=== PATIENT | female | born 1980 | race Caucasian/White ===

== ENCOUNTER 2024-10-28 10:35 | Outpatient (AMB) | payer BC, SELFPAY ==
[2024-10-28 10:44] VITALS: BP 119/82; PULSE 74; RESP 16; TEMP 36.1; O2SAT 99; BMI 23.9
--- NOTE | 2024-10-28 10:44 | AMB.GYNCLNOT ---
Vital Signs 10/28/24 10:44 Height 1.68 m Height Method Stated Weight 67.358 kg Weight Measurement Method Standing Scale BMI 23.9 BP 119/82 Blood Pressure Source Automatic Cuff Blood Pressure Location Left Upper Arm Position Sitting Respiration 16 Pulse 74 Pulse Source Monitor Temp 96.9 F Temp Source Oral Pulse Oximetry (%) 99 Oxygen Delivery Method Room Air Allergies/Home Meds Allergies & Medications Allergies No Known Allergies Allergy (Verified 10/28/24 10:45) Medication Reconciliation No Known Home Medications 10/28/24 [History Confirmed 10/28/24] Intake Visit Data Collection New Patient or Established: New Patient (never been to [facility]) Reason for Visit:: Discuss new breast lump Consent obtained for Telemed Visit: No Seen by Clinical Staff ONLY (RN/MA): No 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 Do You Feel Safe at Home: Yes Authorities Contacted: N/A PCP or OBGYN visit in last 3 months: Yes Date of Last PCP or OBGYN visit: 10/17/23 Hx Now: No Are you currently on any form of Control: No Last menstrual period: 10/17/24 Pain Present Currently: Yes Pain Location: Breast Pain Scale Used: Goldstein-Gold/Numerical Pain scale:: 1 (With deep palpation of breast) Smoking Status Smoking Status: Never smoker 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 1. Little interest or pleasure in doing things: not at all 2. Feeling down, depressed, or hopeless: not at all Total score: 0 PHQ-9 3. Trouble falling or staying asleep, or sleeping too much: Not at all 4. Feeling tired or having little energy: Not at all 5. Poor appetite or overeating: Not at all 6. Feeling bad about yourself - or that you are a failure or have let yourself or your family down: Not at all 7. Trouble concentrating on things, such as reading the newspaper or watching television: Not at all 8. Moving or speaking so slowly that other people could have noticed? - Or the opposite - being so fidgety or restless that you have been moving around a lot more than usual: not at all 9. Thoughts that you would be better off or of hurting yourself in some way: Not at all Total score: 0 If you checked off any problems, how difficult have these problems made it for you to do your work, take care of things at home, or get along with other people?: not difficult at all Source: Developed by Drs. Sanya Keating, Nelly Kee, Demetrius Aleman and colleagues, with an educational terese from [employer]. Depression screen completed yes Social History Living Situation History Marital Status: Lives With: Family Housing: House Housing Other:: Has two children, a 16 y/o son and a 14 year old daughter Tobacco History Smoking Status: Never smoker Alcohol History Alcohol Intake: Current Alcohol Intake Frequency: holidays/special occasions only Domestic Abuse History Do You Feel Safe at Home: Yes Past Medical History Past Medical History Have you ever been diagnosed with any of the following: Neurological Problems Seizures: No Guillain-[place] Syndrome: No Migraine: No Cardiology Problems Cardiac Arrhythmia: No Heart Murmur: No Hypercholesterolemia: No Hypertension: No Respiratory Problems Asthma: No Stomache/Intestinal Problems Gall Bladder Disease: No Ulcer: No Gastroesophageal Reflux Disease: No Obesity: Yes (Pt recently lost 50 pounds with Zepbound, an injectable medication) Genital/Urinary Problems Kidney Stones: No Reproductive Problems Breast Cancer: No Endometriosis: No Fibroids: No Genital Herpes: No Gonorrhea: No Pelvic Inflammatory Disease: No Polycystic Ovarian Syndrome: No Previous Pregnancies: Yes ( x 2, one in 07/22 and one in 12/23. Both full term without problems) Uterine Prolapse: No Musculoskeletal Problems Arthritis: No Rheumatoid Arthritis: No Carpal Tunnel Syndrome: No Fibromyalgia: No Endocrine Problems Diabetes Mellitus Type 2: No Hyperthyroidism: No Hypothyroidism: No Thyroid Cancer: No Systemic Lupus Erythematosus: No Blood Problems Anemia: No Psychologic Problems Depression: No Anxiety: No Attention Deficit Disorder: No Depression: No Eating Disorder: No Other Problems Hospitalization: Yes (for childbirth x 2) Blood Transfusions: No Anesthesia Reactions: No History of Present Illness HPI Narrative The patient is a 44 y/o presents very anxious and is reporting a new breast lump in her left breast at 12 o'clock, The left breast is not tender but the right breast is. No lymphadenopathy or nipple discharge. Pt states her PGM had breast CA. Her last mammogram was a year ago and was reported nomal per pt. No records are available to review. Review of Systems Constitutional Constitutional: Reports as per HPI Comments: Pt admits to intentional weight loss of 50 + pounds with Zepbound recently. Integumentary/Breasts Skin/Breast: Reports breast mass (left breast) and Reports breast pain (right breast) Exam General Limitations: no limitations General Appearance: alert, cooperative, well groomed and anxious Head Head exam: normal inspection Neck Neck exam: Present normal inspection Chest Chest inspection: Present normal inspection and symmetric chest wall rise Exp Chest Breast: left: mass (2x 2 cm mobile mass 12 0'clock above nipple), right: tenderness (diffusely tender) and bilateral: other (Extremely fibrocystic breasts) Resp Respiratory exam: Present normal lung sounds bilaterally Card Cardiovascular exam: Present regular rate and normal rhythm Assessment & Plan Diagnosis / Problem List (1) Breast lump on left side at 1 o'clock position: Status: Acute (2) Special screening examination for neoplasm of breast: Status: Acute (3) Fibrocystic breast changes, bilateral: Status: Acute Plan The patient has very fibrocystic breasts bilaterally with a palpable lump about 12-1 o'clock on the left breast. At this point we will order a diagnostic B mammogram and a B breast U/S. If the lump persists and the screening is negative, I offered to send the patient to a breast surgeon for a biopsy. Additional Plan Follow Up: 4 Weeks Office Procedures OB Clinic LOC & Office Proc's Nursing/Assessment Patient Status: Initial/New Patient OB Clinic Nursing Assessment: BP Monitoring, Medication Reconciliation, Update PMH in EMR and Vital Signs OB Clinic Coordination of Care: Education Simp Pt/Fam, Lab and Imaging orders and Staff clarify orders New Patient Charge New Patient Point Assignment: 108
== END 2024-10-28 14:44 | disposition home or self-care (01) ==
LOC: HODSOBC 10:35
PROVIDERS: Supervising Provider Obstetrics & Gynecology; Visit Provider Obstetrics & Gynecology
DX: N63.21 Unspecified lump in the left breast, upper outer quadrant (principal); N60.11 Diffuse cystic mastopathy of right breast; N60.12 Diffuse cystic mastopathy of left breast
CPT/HCPCS: 99203; G0463

== ENCOUNTER → 2024-10-28 | Outpatient (CLI) | payer BC, SELFPAY ==
--- NOTE | 2024-10-28 12:29 | XR_ITS ---
Examination: Diagnostic digital mammography, bilateral Computer aided detection 3-D breast Tomosynthesis, bilateral Date and time of exam: October 28, 2024 1305 hours INDICATIONS: Patient states left breast lump noticed beginning one month ago, family history breast cancer Technique: Nonmagnified MLO, CC views of the breasts to been obtained, reconstructed from 3-D Tomosynthesis images. R2 computer aided detection program utilized for evaluation of suspicious masses and/or abnormal calcifications. 3-D Tomosynthesis images obtained. Findings: The breast is heterogeneously dense, which may obscure small masses Circumscribed 16mm nodule 1:00 position left breast 35 mm circumscribed nodule 3:00 position left breast, which appears larger than the corresponding left breast cyst on the breast sonogram today Impression: BI-RADS Category 0: Incomplete: Need additional imaging evaluation This patient should return for repeat left breast sonography with the radiologist in attendance.
--- NOTE | 2024-10-28 12:29 | XR_ITS ---
Examination: Breast ultrasound complete, bilateral Date and time of exam: October 28, 2024 1249 hours INDICATIONS: Palpable lump left breast in the 12:00 position beginning 3 weeks ago, family history breast cancer Technique: Real-time grayscale ultrasonographic imaging bilateral breasts, including all 4 quadrants as well as nipple retroareolar and axillary regions. Findings: Sonographic images right breast 9:00 nodule lobular margins 6 x 4 x 5 mm Sonographic images left breast 1:00 cyst 18 x 14 x 15 mm 3:00 cyst 13 x 6 x 12 mm No solid nodules IMPRESSION: BI-RADS Category 3: Probably benign findings Recommend 1 additional 6 month right breast sonogram follow-up to document stability of 9:00 nodule right breast
== END | disposition home or self-care (01) ==
LOC: CDIM 12:19
PROVIDERS: Referring Provider Obstetrics & Gynecology; Visit Provider Obstetrics & Gynecology
DX: R92.8 Other abnormal and inconclusive findings on diagnostic imaging of breast (principal); N63.15 Unspecified lump in the right breast, overlapping quadrants; N60.01 Solitary cyst of right breast; N60.02 Solitary cyst of left breast
CPT/HCPCS: 76641; 77062; 77066; G0279